=== PATIENT | female | born 1985 | race Caucasian/White ===

== ENCOUNTER 2020-01-18 13:02 | Observation (INO) | payer OTHER ==
[2020-01-18 14:41] LABS: Appearance SLIGHTLY CLOUDY (CLEAR); Bacteria RARE /HPF (NEGATIVE); Bilirubin NEGATIVE (NEGATIVE); Blood NEGATIVE Ery/ul (0-5); Epithelial Cells RARE /HPF (FEW); Glucose 150 mg/dL (NEGATIVE); Ketones NEGATIVE (NEGATIVE); Leukocyte Esterase NEGATIVE (NEGATIVE); Mucus SLIGHT /HPF (NEGATIVE); Nitrite NEGATIVE (NEGATIVE); Protein,Urine Dip NEGATIVE (Negative); Urobilinogen NEGATIVE mg/dL (0-1)
[2020-01-18 14:43] LABS: Absolute Neutrophil Ct (ANC) 6.83 (1.4-6.9); BASOPHIL % 0.1 % (0.0-0.4); Basophil (Absolute #) 0.01 (0-0.4); Eosinophil % 0.7 % (0.00-5.0); Eosinophil (Absolute #) 0.06 (0-0.5); Hematocrit 40.7 % (35-47); Hemoglobin 13.3 gm/dl (12.0-16.0); Lymphocyte (Absolute #) 1.05 (1.0-4.6); Lymphocytes % 12.3 % (24.0-44.0); Mean Corpuscular Hemoglobin 29.4 pg (26-32); Mean Corpuscular Hgb Concent. 32.7 g/dl (32-36); Mean Platelet Volume 9.9 fl (7.5-11.0); Monocyte (Absolute #) 0.59 (0.0-1.3); Monocytes % 6.9 % (0.0-12.0); Platelet Count 214 K/mm3 (150-450); Red Blood Count 4.52 M/mm3 (4.1-5.4); White Blood Count 8.5 K/mm3 (4.0-10.5)
[2020-01-18] MEDS: TYLENOL EXTRA STRENGTH 500 MG PO PRN ×2 (15:08→21:08)
[2020-01-18 15:26] LABS: ALBUMIN 4.1 g/dL (3.5-5.0); ALKALINE PHOSPHATASE 65 U/L (38-126); ANION GAP 11.7 MEQ/L (5-15); BLOOD UREA NITROGEN 8 mg/dL (7-17); CHLORIDE 102 mmol/L (98-107); Calcium 10.1 mg/dL (8.4-10.2); Carbon Dioxide 24 mmol/L (22-30); Creatinine 1 0.41 mg/dL (0.52-1.04); EST GLOMERULAR FILTRATION RATE > 60.0 ML/MIN; Glucose 108 mg/dL (74-106); Potassium 3.8 mmol/L (3.5-5.1); SGOT/AST 23 U/L (14-36); SGPT/ALT 16 U/L (0-35); SODIUM 134 mmol/L (137-145); Total Protein 7.4 g/dL (6.3-8.2)
[2020-01-18] MEDS ORDERED: PROCARDIA 10 MG ONE (20:11)
[2020-01-18] MEDS ORDERED: THERAGRAN MULTIVITAMIN ONE (20:11)
[2020-01-18] MEDS ORDERED: Pepcid 20 MG PO PRN (20:13)
[2020-01-18] MEDS ORDERED: Adalat CC 30 MG TABLET PO SCH (22:00)
[2020-01-18] MEDS ORDERED: THERAGRAN MULTIVITAMIN PO SCH (22:00)
[2020-01-18] MEDS ORDERED: NON-FORMULARY ITEM PO PRN (22:00)
[2020-01-18] MEDS ORDERED: Ambien 10 MG PO SCH (22:00)
[2020-01-18 23:41] VITALS: O2SAT 99
[2020-01-19] MEDS ORDERED: Pepcid 20 MG PO PRN (06:36)
[2020-01-19] MEDS ORDERED: PATIENT OWN MEDICATION PO PRN (06:43)
--- NOTE | 2020-01-19 10:58 | XRAY ---
Indication: Right upper quadrant pain. Cholecystectomy. Two-dimensional right upper quadrant abdominal sonogram performed. Comparison: None Pancreas not well-visualized due to overlying bowel gas. Gallbladder surgically absent. No free fluid. Common bile duct measures 3.3 mm. No intrahepatic biliary distention. Remaining visualized portions of the liver appear sonographically unremarkable. Right kidney measures 11.3 cm in length with nonobstructing punctate calculus. Impression: Nonvisualization pancreas, cholecystectomy, and nonobstructing right renal micro-calculus. Remaining right upper quadrant sonogram is negative.
--- NOTE | 2020-01-19 11:23 | XRAY ---
Indication: Right upper quadrant pain. . 2-dimensional OB ultrasound performed. Comparison: None There is a single viable intrauterine currently in cephalic presentation. Normal four-chamber heart with heart rate 139 BPM. Normal three-vessel cord and cord insertion. Visualized spine, stomach, and bladder are unremarkable. Posterior placenta without abruption/previa. Cervical length is 4.8 cm. BPD measures 7.22 cm corresponding to 29 weeks 0 days. HC measures 26.71 cm corresponding to 29 weeks 1 day. AC measures 22.96 cm corresponding to 27 weeks 2 days. FL measures 4.79 cm corresponding to 26 weeks 0 days. JOSELUIS is 16 cm. Impression: Single viable intrauterine with mean gestational age 27 weeks 6 days. Expected date of confinement is April 13, 2020.
[2020-01-19 16:30] VITALS: BP 124/89; PULSE 95
[2020-01-19] MEDS ORDERED: THERAGRAN MULTIVITAMIN PO SCH (22:00)
[2020-01-19] MEDS ORDERED: Adalat CC 30 MG TABLET PO SCH (22:00)
== END 2020-01-19 12:58 | disposition home or self-care (01) ==
LOC: ED 13:02 → OB 13:30
PROVIDERS: ADMIT Family Medicine; ATTEND Family Medicine
DX: O26.892 Other specified pregnancy related conditions, second trimester (principal); Z3A.27 27 weeks gestation of pregnancy; R10.11 Right upper quadrant pain; O13.2 Gestational [pregnancy-induced] hypertension without significant proteinuria, second trimester
CPT/HCPCS: 36415; 76705; 76805; 80053; 81001; 84550; 85025; 99283; G0378; A9270-GY

== ENCOUNTER 2020-02-04 09:22 | Observation (INO) | payer OTHER ==
[2020-02-04] MEDS ORDERED: Lactated Ringers 1,000 ML IV SCH (11:00)
[2020-02-04 11:43] LABS: Appearance SLIGHTLY CLOUDY (CLEAR); Bilirubin NEGATIVE (NEGATIVE); Blood NEGATIVE Ery/ul (0-5); Epithelial Cells RARE /HPF (FEW); Glucose NEGATIVE (NEGATIVE); Ketones NEGATIVE (NEGATIVE); Leukocyte Esterase NEGATIVE (NEGATIVE); Mucus SLIGHT /HPF (NEGATIVE); Nitrite NEGATIVE (NEGATIVE); Protein,Urine Dip NEGATIVE (Negative); RBC 0-2 /HPF (0-2); Specific Gravity 1.018 (1.005-1.025); Urobilinogen NEGATIVE mg/dL (0-1); WBC 0-2 /HPF (0-5)
[2020-02-04 11:51] LABS: Absolute Neutrophil Ct (ANC) 6.42 (1.4-6.9); BASOPHIL % 0.1 % (0.0-0.4); Basophil (Absolute #) 0.01 (0-0.4); Eosinophil % 0.4 % (0.00-5.0); Eosinophil (Absolute #) 0.03 (0-0.5); Hematocrit 38.3 % (35-47); Hemoglobin 12.4 gm/dl (12.0-16.0); Lymphocyte (Absolute #) 0.96 (1.0-4.6); Lymphocytes % 12.3 % (24.0-44.0); Mean Cell Volume 91.8 fl (78-100); Mean Corpuscular Hemoglobin 29.7 pg (26-32); Mean Corpuscular Hgb Concent. 32.4 g/dl (32-36); Mean Platelet Volume 10.4 fl (7.5-11.0); Monocytes % 5.1 % (0.0-12.0); Neutrophil % 82.1 % (36.0-66.0); Platelet Count 201 K/mm3 (150-450); Red Blood Count 4.17 M/mm3 (4.1-5.4); Red Cell Distribution Width 14.1 % (11.5-14.0); White Blood Count 7.8 K/mm3 (4.0-10.5)
[2020-02-04 12:39] LABS: ABO TYPING A; Antibody Screen NEGATIVE (NEGATIVE); RH TYPING POSITIVE
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
[2020-02-04 19:36] VITALS: BP 119/80; PULSE 87; O2SAT 97
[2020-02-04 19:39] LABS: Amphetamine,Urine NEGATIVE (NEGATIVE); Barbiturate,Urine NEGATIVE (NEGATIVE); Benzodiazepine,Urine NEGATIVE (NEGATIVE); Cocaine,Urine NEGATIVE (NEGATIVE); Methadone,Urine NEGATIVE (NEGATIVE); Opiate,Urine NEGATIVE (NEGATIVE); PCP,Urine NEGATIVE (NEGATIVE); THC,Urine NEGATIVE (NEGATIVE)
== END 2020-02-04 17:00 | disposition home or self-care (01) ==
LOC: OB 09:22
PROVIDERS: ADMIT Obstetrics & Gynecology; ATTEND Obstetrics & Gynecology
DX: Z34.83 Encounter for supervision of other normal pregnancy, third trimester (principal); Z3A.29 29 weeks gestation of pregnancy
CPT/HCPCS: 36415; 76805; 80307; 81001; 85025; 85460; 86850; 86900; 86901; G0378

== ENCOUNTER 2020-02-22 14:43 | Observation (INO) | payer OTHER ==
[2020-02-22] MEDS ORDERED: Lactated Ringers 1,000 ML IV ONE (15:28)
[2020-02-22 15:46] LABS: Appearance SLIGHTLY CLOUDY (CLEAR); Bilirubin NEGATIVE (NEGATIVE); Blood NEGATIVE Ery/ul (0-5); Epithelial Cells RARE /HPF (FEW); Glucose NEGATIVE (NEGATIVE); Ketones NEGATIVE (NEGATIVE); Leukocyte Esterase SMALL (NEGATIVE); Mucus SLIGHT /HPF (NEGATIVE); Nitrite NEGATIVE (NEGATIVE); Protein,Urine Dip NEGATIVE (Negative); Specific Gravity 1.024 (1.005-1.025); Urobilinogen NEGATIVE mg/dL (0-1)
[2020-02-22 15:55] LABS: Amphetamine,Urine NEGATIVE (NEGATIVE); Barbiturate,Urine NEGATIVE (NEGATIVE); Benzodiazepine,Urine NEGATIVE (NEGATIVE); Cocaine,Urine NEGATIVE (NEGATIVE); Methadone,Urine NEGATIVE (NEGATIVE); Opiate,Urine NEGATIVE (NEGATIVE); PCP,Urine NEGATIVE (NEGATIVE); THC,Urine NEGATIVE (NEGATIVE)
[2020-02-22 16:08] LABS: Absolute Neutrophil Ct (ANC) 7.55 (1.4-6.9); BASOPHIL % 0.1 % (0.0-0.4); Basophil (Absolute #) 0.01 (0-0.4); Eosinophil % 0.5 % (0.00-5.0); Eosinophil (Absolute #) 0.05 (0-0.5); Hematocrit 38.3 % (35-47); Hemoglobin 12.6 gm/dl (12.0-16.0); Lymphocyte (Absolute #) 0.99 (1.0-4.6); Lymphocytes % 10.8 % (24.0-44.0); Mean Corpuscular Hgb Concent. 32.9 g/dl (32-36); Mean Platelet Volume 10.5 fl (7.5-11.0); Monocyte (Absolute #) 0.56 (0.0-1.3); Monocytes % 6.1 % (0.0-12.0); Neutrophil % 82.5 % (36.0-66.0); Platelet Count 205 K/mm3 (150-450); Red Blood Count 4.35 M/mm3 (4.1-5.4); Red Cell Distribution Width 13.9 % (11.5-14.0); White Blood Count 9.2 K/mm3 (4.0-10.5)
[2020-02-22] MEDS ORDERED: BRETHINE 1 MG/ML SQ ONE ×2 (16:08→18:20)
[2020-02-22] MEDS ORDERED: BRETHINE 1 MG/ML ONE (18:20)
[2020-02-22 21:55] VITALS: O2SAT 100
[2020-02-22 22:21] VITALS: BP 133/83; PULSE 95
== END 2020-02-22 20:45 | disposition home or self-care (01) ==
LOC: OB 14:43
PROVIDERS: ADMIT Obstetrics & Gynecology; ATTEND Obstetrics & Gynecology
DX: Z34.83 Encounter for supervision of other normal pregnancy, third trimester (principal); Z3A.32 32 weeks gestation of pregnancy
CPT/HCPCS: 36415; 80307; 81001; 82731; 85025; 96372; G0378

== ENCOUNTER 2020-02-26 11:12 | Observation (INO) | payer OTHER ==
[2020-02-26 11:57] LABS: Amphetamine,Urine NEGATIVE (NEGATIVE); Barbiturate,Urine NEGATIVE (NEGATIVE); Benzodiazepine,Urine NEGATIVE (NEGATIVE); Cocaine,Urine NEGATIVE (NEGATIVE); Methadone,Urine NEGATIVE (NEGATIVE); Opiate,Urine NEGATIVE (NEGATIVE); PCP,Urine NEGATIVE (NEGATIVE); THC,Urine NEGATIVE (NEGATIVE)
[2020-02-26] MEDS ORDERED: Lactated Ringers 1,000 ML IV ONE (11:58)
[2020-02-26 12:04] LABS: Appearance SLIGHTLY CLOUDY (CLEAR); Bacteria FEW /HPF (NEGATIVE); Bilirubin NEGATIVE (NEGATIVE); Blood NEGATIVE Ery/ul (0-5); Epithelial Cells FEW /HPF (FEW); Glucose NEGATIVE (NEGATIVE); Ketones SMALL (NEGATIVE); Leukocyte Esterase MODERATE (NEGATIVE); Mucus SLIGHT /HPF (NEGATIVE); Nitrite NEGATIVE (NEGATIVE); Protein,Urine Dip NEGATIVE (Negative); Specific Gravity 1.015 (1.005-1.025); Urobilinogen NEGATIVE mg/dL (0-1)
[2020-02-26] MEDS ORDERED: BRETHINE 1 MG/ML SQ ONE (13:12)
[2020-02-26] MEDS ORDERED: ROCEPHIN 1 Gm-D5w 50 ml Bag** 1 G/50 ML IVPB IV SCH (13:15)
[2020-02-26] MEDS ORDERED: BENADRYL 25 MG CAPSULE PO ONE (14:06)
[2020-02-26 15:56] VITALS: BP 128/83; PULSE 102
== END 2020-02-26 15:59 | disposition home or self-care (01) ==
LOC: OB 11:12
PROVIDERS: ADMIT Obstetrics & Gynecology; ATTEND Obstetrics & Gynecology
DX: O47.00 False labor before 37 completed weeks of gestation, unspecified trimester (principal); Z3A.32 32 weeks gestation of pregnancy
CPT/HCPCS: 80307; 81001; 87086; G0378; J0696; A9270-GY

== ENCOUNTER 2020-03-02 08:59 | Observation (INO) | payer OTHER ==
[2020-03-02 10:40] LABS: Absolute Neutrophil Ct (ANC) 5.16 (1.4-6.9); BASOPHIL % 0.1 % (0.0-0.4); Basophil (Absolute #) 0.01 (0-0.4); Eosinophil % 1.2 % (0.00-5.0); Eosinophil (Absolute #) 0.08 (0-0.5); Lymphocyte (Absolute #) 0.95 (1.0-4.6); Mean Cell Volume 89.4 fl (78-100); Mean Corpuscular Hgb Concent. 32.4 g/dl (32-36); Mean Platelet Volume 10.5 fl (7.5-11.0); Monocyte (Absolute #) 0.61 (0.0-1.3); Neutrophil % 75.7 % (36.0-66.0); Platelet Count 202 K/mm3 (150-450); Red Blood Count 4.14 M/mm3 (4.1-5.4); Red Cell Distribution Width 14.2 % (11.5-14.0); White Blood Count 6.8 K/mm3 (4.0-10.5)
[2020-03-02 11:12] LABS: ALBUMIN 3.4 g/dL (3.5-5.0); ALKALINE PHOSPHATASE 71 U/L (38-126); ANION GAP 8.7 MEQ/L (5-15); BLOOD UREA NITROGEN 7 mg/dL (7-17); CHLORIDE 104 mmol/L (98-107); Carbon Dioxide 25 mmol/L (22-30); Creatinine 1 0.45 mg/dL (0.52-1.04); EST GLOMERULAR FILTRATION RATE > 60.0 ML/MIN; Glucose 89 mg/dL (74-106); Potassium 3.5 mmol/L (3.5-5.1); SGOT/AST 19 U/L (14-36); SGPT/ALT 14 U/L (0-35); SODIUM 135 mmol/L (137-145); Total Protein 6.4 g/dL (6.3-8.2)
[2020-03-02 11:29] VITALS: BP 122/82; PULSE 104
[2020-03-02 20:05] LABS: Creatinine, Urine Random 75.4 mg/dl (30-125)
== END 2020-03-02 10:50 | disposition home or self-care (01) ==
LOC: WHC 08:59 → OB 09:34
PROVIDERS: ADMIT Obstetrics & Gynecology; ATTEND Obstetrics & Gynecology
DX: O13.3 Gestational [pregnancy-induced] hypertension without significant proteinuria, third trimester (principal); Z3A.33 33 weeks gestation of pregnancy; R80.9 Proteinuria, unspecified
CPT/HCPCS: 36415; 59025; 80053; 82570; 84156; 84550; 85025; 87081; G0378; 59425; 81002

== ENCOUNTER 2020-03-09 10:18 | Observation (INO) | payer OTHER ==
[2020-03-09 11:55] LABS: Hematocrit 36.8 % (35-47); Mean Cell Volume 88.5 fl (78-100); Mean Corpuscular Hemoglobin 28.8 pg (26-32); Mean Corpuscular Hgb Concent. 32.6 g/dl (32-36); Mean Platelet Volume 10.2 fl (7.5-11.0); Platelet Count 201 K/mm3 (150-450); Red Blood Count 4.16 M/mm3 (4.1-5.4); Red Cell Distribution Width 14.2 % (11.5-14.0); White Blood Count 7.5 K/mm3 (4.0-10.5)
[2020-03-09 12:10] LABS: Creatinine, Urine Random 109.8 mg/dl (30-125)
[2020-03-09 12:12] LABS: ALBUMIN 3.6 g/dL (3.5-5.0); ALKALINE PHOSPHATASE 82 U/L (38-126); ANION GAP 10.5 MEQ/L (5-15); BLOOD UREA NITROGEN 11 mg/dL (7-17); CHLORIDE 106 mmol/L (98-107); Calcium 9.1 mg/dL (8.4-10.2); Carbon Dioxide 22 mmol/L (22-30); Creatinine 1 0.41 mg/dL (0.52-1.04); EST GLOMERULAR FILTRATION RATE > 60.0 ML/MIN; Glucose 102 mg/dL (74-106); Potassium 3.8 mmol/L (3.5-5.1); SGOT/AST 20 U/L (14-36); SGPT/ALT 11 U/L (0-35); SODIUM 134 mmol/L (137-145); Total Protein 6.7 g/dL (6.3-8.2); Uric Acid 3.3 mg/dL (2.6-6.0)
[2020-03-09 14:25] VITALS: BP 118/73; PULSE 103
[2020-03-09 14:28] VITALS: O2SAT 99
== END 2020-03-09 14:05 | disposition home or self-care (01) ==
LOC: WHC 10:18 → OB 10:41
PROVIDERS: ADMIT Obstetrics & Gynecology; ATTEND Obstetrics & Gynecology
DX: O13.3 Gestational [pregnancy-induced] hypertension without significant proteinuria, third trimester (principal); Z3A.34 34 weeks gestation of pregnancy
CPT/HCPCS: 36415; 59025; 80053; 82570; 84156; 84550; 85027; G0378; 59425; 81002

== ENCOUNTER 2020-03-14 10:34 | Observation (INO) | payer OTHER ==
[2020-03-14 11:07] VITALS: BP 127/81; PULSE 103; O2SAT 100
== END 2020-03-14 11:30 | disposition home or self-care (01) ==
LOC: OB 10:34
PROVIDERS: ADMIT Obstetrics & Gynecology; ATTEND Obstetrics & Gynecology
DX: O13.3 Gestational [pregnancy-induced] hypertension without significant proteinuria, third trimester (principal)
CPT/HCPCS: 59025; G0378

== ENCOUNTER 2020-03-17 13:35 | Observation (INO) | payer OTHER ==
[2020-03-17 14:51] VITALS: BP 132/87; PULSE 98; O2SAT 103
== END 2020-03-17 14:45 | disposition home or self-care (01) ==
LOC: OB 13:35
PROVIDERS: ADMIT Obstetrics & Gynecology; ATTEND Obstetrics & Gynecology
DX: O13.3 Gestational [pregnancy-induced] hypertension without significant proteinuria, third trimester (principal)
CPT/HCPCS: 59025; G0378

== ENCOUNTER 2020-03-21 13:16 | Observation (INO) | payer OTHER ==
[2020-03-21 14:15] VITALS: BP 141/84; PULSE 104
== END 2020-03-21 14:35 | disposition home or self-care (01) ==
LOC: UNDOADMOB 13:16 → MED SURG 13:16 → UNDODISOB 14:35
PROVIDERS: ADMIT Obstetrics & Gynecology; ATTEND Obstetrics & Gynecology
DX: O13.3 Gestational [pregnancy-induced] hypertension without significant proteinuria, third trimester (principal); Z3A.36 36 weeks gestation of pregnancy
CPT/HCPCS: 59025; G0378

== ENCOUNTER 2020-03-24 12:46 | Observation (INO) | payer OTHER ==
--- NOTE | 2020-03-24 13:40 | XRAY ---
Indication: growth. 2-dimensional OB ultrasound performed. Comparison: February 04, 2020. Again there is a single viable intrauterine in cephalic presentation. Normal four-chamber heart with heart rate 147 BPM. Again posterior fundal placenta without abruption/previa. BPD measures 8.87 cm corresponding to 35 weeks 6 days. HC measures 32.11 cm corresponding to 36 weeks 2 days. AC measures 32.30 cm corresponding to 36 weeks 2 days. FL measures 6.91 cm corresponding to 35 weeks 3 days. Estimated weight 6 lbs. 3 oz., +/-15 ounces. Approximate 38 percentile. JOSELUIS is 12.5 cm. Impression: Single viable intrauterine with mean gestational age 36 weeks 0 days. Normal progression of . No new/acute findings.
[2020-03-24 13:48] VITALS: PULSE 93
[2020-03-24 13:48] LABS: 24 HR TOT. PROTEIN CALCULATION 0.063 GM/DAY (0.04-0.15)
[2020-03-24 14:53] VITALS: BP 127/82
== END 2020-03-24 14:10 | disposition home or self-care (01) ==
LOC: UNDOADMOB 12:46 → MED SURG 12:46 → EDSTATUS 12:46
PROVIDERS: ADMIT Obstetrics & Gynecology; ATTEND Obstetrics & Gynecology
DX: O14.93 Unspecified pre-eclampsia, third trimester (principal); Z3A.36 36 weeks gestation of pregnancy
CPT/HCPCS: 59025; 76816; 81050; 84156; G0378

== ENCOUNTER 2020-03-25 13:27 | Observation (INO) | payer OTHER ==
[2020-03-25 14:32] LABS: Absolute Neutrophil Ct (ANC) 6.03 (1.4-6.9); BASOPHIL % 0.1 % (0.0-0.4); Basophil (Absolute #) 0.01 (0-0.4); Eosinophil % 0.4 % (0.00-5.0); Eosinophil (Absolute #) 0.03 (0-0.5); Hematocrit 36.4 % (35-47); Hemoglobin 12.2 gm/dl (12.0-16.0); Lymphocyte (Absolute #) 0.99 (1.0-4.6); Lymphocytes % 13.3 % (24.0-44.0); Mean Cell Volume 87.5 fl (78-100); Mean Corpuscular Hemoglobin 29.3 pg (26-32); Mean Corpuscular Hgb Concent. 33.5 g/dl (32-36); Mean Platelet Volume 10.4 fl (7.5-11.0); Monocyte (Absolute #) 0.37 (0.0-1.3); Neutrophil % 81.2 % (36.0-66.0); Platelet Count 180 K/mm3 (150-450); Red Blood Count 4.16 M/mm3 (4.1-5.4); Red Cell Distribution Width 14.5 % (11.5-14.0); White Blood Count 7.4 K/mm3 (4.0-10.5)
[2020-03-25 14:50] LABS: ALBUMIN 3.2 g/dL (3.5-5.0); ALKALINE PHOSPHATASE 89 U/L (38-126); BLOOD UREA NITROGEN 8 mg/dL (7-17); CHLORIDE 107 mmol/L (98-107); Carbon Dioxide 22 mmol/L (22-30); Creatinine 1 0.44 mg/dL (0.52-1.04); EST GLOMERULAR FILTRATION RATE > 60.0 ML/MIN; Glucose 124 mg/dL (74-106); Potassium 3.5 mmol/L (3.5-5.1); SGOT/AST 17 U/L (14-36); SGPT/ALT 11 U/L (0-35); SODIUM 134 mmol/L (137-145); Total Protein 6.3 g/dL (6.3-8.2)
[2020-03-25 14:52] VITALS: BP 141/86; PULSE 97
[2020-03-25] MEDS ORDERED: Reglan 10 MG PO ONE (15:45)
[2020-03-25] MEDS ORDERED: Adalat CC 30 MG TABLET PO ONE (15:45)
[2020-03-25] MEDS ORDERED: TYLENOL EXTRA STRENGTH 500 MG PO ONE (15:45)
[2020-03-25 15:46] LABS: Appearance CLOUDY (CLEAR); Bacteria MODERATE /HPF (NEGATIVE); Bilirubin NEGATIVE (NEGATIVE); Blood NEGATIVE Ery/ul (0-5); Epithelial Cells FEW /HPF (FEW); Glucose 50 mg/dL (NEGATIVE); Ketones NEGATIVE (NEGATIVE); Leukocyte Esterase MODERATE (NEGATIVE); Mucus MODERATE /HPF (NEGATIVE); Nitrite NEGATIVE (NEGATIVE); Protein,Urine Dip NEGATIVE (Negative); RBC 0-2 /HPF (0-2); Specific Gravity 1.025 (1.005-1.025); Urobilinogen NEGATIVE mg/dL (0-1)
== END 2020-03-25 17:12 | disposition home or self-care (01) ==
LOC: OB 13:27
PROVIDERS: ADMIT Obstetrics & Gynecology; ATTEND Obstetrics & Gynecology
DX: Z34.83 Encounter for supervision of other normal pregnancy, third trimester (principal); Z3A.36 36 weeks gestation of pregnancy
CPT/HCPCS: 36415; 80053; 81001; 84550; 85025; 87086; G0378; A9270-GY

== ENCOUNTER 2020-03-28 05:10 | Inpatient (IN) | payer OTHER ==
[2020-03-28] MEDS ORDERED: SOD CITRATE-CITRIC ACID SOLN PO ONE ×2 (06:00→07:00)
[2020-03-28 06:02] LABS: Hematocrit 34.1 % (35-47); Hemoglobin 11.3 gm/dl (12.0-16.0); Mean Cell Volume 87.4 fl (78-100); Mean Corpuscular Hgb Concent. 33.1 g/dl (32-36); Mean Platelet Volume 10.3 fl (7.5-11.0); Platelet Count 191 K/mm3 (150-450); Red Cell Distribution Width 14.6 % (11.5-14.0); White Blood Count 6.6 K/mm3 (4.0-10.5)
[2020-03-28 06:10] LABS: Appearance CLOUDY (CLEAR); Bacteria RARE /HPF (NEGATIVE); Bilirubin NEGATIVE (NEGATIVE); Blood NEGATIVE Ery/ul (0-5); Epithelial Cells MANY /HPF (FEW); Glucose >=500 mg/dL (NEGATIVE); Ketones TRACE (NEGATIVE); Leukocyte Esterase SMALL (NEGATIVE); Mucus MODERATE /HPF (NEGATIVE); Nitrite NEGATIVE (NEGATIVE); Protein,Urine Dip 30 (Negative); Specific Gravity 1.028 (1.005-1.025); Urobilinogen NEGATIVE mg/dL (0-1)
[2020-03-28 06:19] LABS: Amphetamine,Urine NEGATIVE (NEGATIVE); Barbiturate,Urine NEGATIVE (NEGATIVE); Benzodiazepine,Urine NEGATIVE (NEGATIVE); Cocaine,Urine NEGATIVE (NEGATIVE); Methadone,Urine NEGATIVE (NEGATIVE); Opiate,Urine NEGATIVE (NEGATIVE); PCP,Urine NEGATIVE (NEGATIVE); THC,Urine NEGATIVE (NEGATIVE)
[2020-03-28 06:25] LABS: INR 0.95 (0.8-3.0); PROTIME 10.7 SECONDS (9.95-12.35)
[2020-03-28 06:28] LABS: PTT 23.1 SECONDS (25.3-37.0)
[2020-03-28 06:52] LABS: ABO TYPING A; Antibody Screen NEGATIVE (NEGATIVE); RH TYPING POSITIVE
[2020-03-28] MEDS ORDERED: Lactated Ringers 1,000 ML IV ONE ×2 (07:00→07:19)
[2020-03-28] MEDS ORDERED: CLINDAMYCIN-D5W 900 MG/50 ML*** 900 MG/50 ML BAG IV SCH ×2 (07:00→22:00)
[2020-03-28] MEDS ORDERED: Reglan 10 MG/2 ML IV SCH (07:00)
[2020-03-28] MEDS ORDERED: Lactated Ringers 1,000 ML IV SCH (07:00)
[2020-03-28] MEDS ORDERED: Pepcid 20 MG VIAL IV SCH (07:00)
[2020-03-28] MEDS ORDERED: Astramorph-Pf 5 MG/10 ML ONE (07:33)
[2020-03-28] MEDS ORDERED: Decadron 4 MG INJ ONE (08:26)
[2020-03-28] MEDS ORDERED: TORAdol 30 mg Injection ONE (08:26)
[2020-03-28] MEDS ORDERED: Pitocin 10 UNITS/ML ONE (08:26)
[2020-03-28] MEDS ORDERED: Zofran 4 MG/2 ML VIAL ONE (08:26)
[2020-03-28] MEDS ORDERED: Naropin 0.5% 30 ML VIAL ONE (08:36)
[2020-03-28] MEDS ORDERED: EPINEPHRINE 1MG/ML AMP ONE (08:36)
[2020-03-28] MEDS ORDERED: HOLD NARCOTIC ANALGESICS AND SEDATIVES X24 HR MC PRN (09:00)
[2020-03-28] MEDS ORDERED: DEMEROL 50 MG IV PRN (09:00)
[2020-03-28] MEDS ORDERED: Phenergan 25 MG INJ IM PRN (09:00)
[2020-03-28] MEDS ORDERED: LANSINOH 40 GM TOP PRN (09:00)
[2020-03-28] MEDS ORDERED: Mylicon 80MG PO PRN (09:00)
[2020-03-28] MEDS ORDERED: PERCOCET TABLET 5/325MG PO PRN (09:00)
[2020-03-28] MEDS ORDERED: Narcan 0.4 MG/ML IV PRN (09:00)
[2020-03-28] MEDS ORDERED: Zofran 4 MG/2 ML VIAL IV PRN (09:00)
[2020-03-28] MEDS ORDERED: Dulcolax 10 MG SUPP PR PRN (09:00)
[2020-03-28] MEDS ORDERED: Sodium Chloride 0.9% 10 ML FLUSH Syringe IJ PRN (09:00)
[2020-03-28] MEDS ORDERED: CLARITIN 10 MG PO PRN (09:00)
[2020-03-28] MEDS ORDERED: BENADRYL 50 MG/ML IV PRN (09:00)
[2020-03-28] MEDS ORDERED: Nubain 10 MG/ML IV PRN (09:00)
[2020-03-28] MEDS ORDERED: MORPHINE SULFATE 2 MG INJ IV PRN (09:00)
[2020-03-28] MEDS ORDERED: XYLOCAINE 2%/Epi 1:200000 20ML VIAL MPF ONE (09:09)
[2020-03-28 10:00] LABS: Appearance CLEAR (CLEAR); Bilirubin NEGATIVE (NEGATIVE); Blood NEGATIVE Ery/ul (0-5); Glucose 50 mg/dL (NEGATIVE); Ketones NEGATIVE (NEGATIVE); Leukocyte Esterase NEGATIVE (NEGATIVE); Mucus SLIGHT /HPF (NEGATIVE); Nitrite NEGATIVE (NEGATIVE); Protein,Urine Dip NEGATIVE (Negative); Specific Gravity 1.008 (1.005-1.025); Urobilinogen NEGATIVE mg/dL (0-1)
[2020-03-28 10:04] LABS: Bacteria RARE /HPF (NEGATIVE); Epithelial Cells RARE /HPF (FEW); RBC 0-2 /HPF (0-2); WBC 0-2 /HPF (0-5)
[2020-03-28] MEDS: FERREX 150 PO SCH (12:31)
[2020-03-28] MEDS: Colace 100 MG PO SCH ×2 (12:31→20:35)
[2020-03-28] MEDS: Dextrose 5%-Lr IV Solution 1000 ML 1,000 ML IV SCH ×2 (14:09→20:27)
[2020-03-28] MEDS: CLINDAMYCIN-D5W 900 MG/50 ML*** 900 MG/50 ML BAG IV SCH (16:44)
[2020-03-28] MEDS: MOTRIN 400 MG PO PRN (20:35)
[2020-03-28] MEDS: TYLENOL EXTRA STRENGTH 500 MG PO PRN (20:36)
[2020-03-28] MEDS ORDERED: Ambien 10 MG PO PRN (20:52)
[2020-03-28] MEDS ORDERED: ENOXAPARIN SODIUM SQ ONE (21:00)
[2020-03-28] MEDS ORDERED: Adalat CC 30 MG TABLET PO SCH (22:00)
[2020-03-28] MEDS ORDERED: Pepcid 20 MG PO SCH (22:00)
[2020-03-29] MEDS: CLINDAMYCIN-D5W 900 MG/50 ML*** 900 MG/50 ML BAG IV SCH (01:45)
[2020-03-29] MEDS: MOTRIN 400 MG PO PRN ×2 (05:22→12:40)
[2020-03-29] MEDS: TYLENOL EXTRA STRENGTH 500 MG PO PRN ×2 (05:22→10:55)
[2020-03-29 05:24] LABS: Absolute Neutrophil Ct (ANC) 7.88 (1.4-6.9); BASOPHIL % 0.1 % (0.0-0.4); Basophil (Absolute #) 0.01 (0-0.4); Eosinophil % 0.1 % (0.00-5.0); Eosinophil (Absolute #) 0.01 (0-0.5); Hematocrit 26.6 % (35-47); Hemoglobin 8.8 gm/dl (12.0-16.0); Lymphocyte (Absolute #) 0.89 (1.0-4.6); Lymphocytes % 9.3 % (24.0-44.0); Mean Cell Volume 89.3 fl (78-100); Mean Corpuscular Hemoglobin 29.5 pg (26-32); Mean Corpuscular Hgb Concent. 33.1 g/dl (32-36); Mean Platelet Volume 10.7 fl (7.5-11.0); Monocyte (Absolute #) 0.79 (0.0-1.3); Monocytes % 8.2 % (0.0-12.0); Neutrophil % 82.3 % (36.0-66.0); Platelet Count 165 K/mm3 (150-450); Red Blood Count 2.98 M/mm3 (4.1-5.4); Red Cell Distribution Width 14.4 % (11.5-14.0); White Blood Count 9.6 K/mm3 (4.0-10.5)
--- NOTE | 2020-03-29 05:51 | PCM.NOTE ---
Date and Time: 03/29/20 0549 Subjective Assessment: pod 1 sp csection pt resting in bed able to ambulate and tolerate diet. vss afebrile abd; soft incisionc/d/intact nondistended uterus; firm lochia; mild a/p sp csection with chronic htn with anemia should take iron supplementation bid continue nifedipine once daily anticipate discharge tomorrow am OBJECTIVE DATA Vital Signs: Vital Signs - 24 hr Temp Pulse Resp BP Pulse Ox 03/29/20 04:00 99 03/29/20 03:00 79 134/74 99 03/29/20 02:00 97.7 F 79 136/78 99 03/29/20 01:00 99 03/29/20 00:00 99 03/28/20 23:00 100 03/28/20 22:00 100 03/28/20 21:00 100 03/28/20 20:00 97.7 F 79 20 145/80 100 03/28/20 19:15 97.7 F 79 20 145/80 100 03/28/20 19:00 99 03/28/20 18:00 100 03/28/20 17:00 100 03/28/20 16:00 100 03/28/20 15:00 100 03/28/20 14:00 85 18 120/80 100 03/28/20 11:00 97 H 20 114/79 100 03/28/20 10:45 97 H 20 117/68 03/28/20 10:30 93 H 20 120/73 03/28/20 10:15 94 H 124/75 03/28/20 10:00 98.0 F 89 20 111/60 03/28/20 07:33 98.0 F 95 H 20 111/60 100 03/28/20 07:31 98.0 F 95 H 20 111/60 100 03/28/20 07:28 98.0 F 95 H 20 111/60 100 03/28/20 06:45 98.0 F 95 H 20 111/60 100 03/28/20 06:24 98.0 F 95 H 20 111/60 100 Pain Assessment - Last Documented Pain Intensity 1 Intake and Output: Intake & Output 03/26/20 03/27/20 03/28/20 03/29/20 11:59 11:59 11:59 11:59 Intake Total 1250 Output Total 1000 Balance 250 Weight 84.942 kg Lab Results: Lab Results-Last 24 Hours 03/28/20 03/28/20 03/28/20 Range/Units 05:50 05:50 05:50 WBC 6.6 (4.0-10.5) K/mm3 RBC 3.90 L (4.1-5.4) M/mm3 Hgb 11.3 L (12.0-16.0) gm/dl Hct 34.1 L (35-47) % MCV 87.4 (78-100) fl MCH 29.0 (26-32) pg MCHC 33.1 (32-36) g/dl RDW 14.6 H (11.5-14.0) % Plt Count 191 (150-450) K/mm3 MPV 10.3 (7.5-11.0) fl Gran % (36.0-66.0) % Eos # (Auto) (0-0.5) Absolute Lymphs (auto) (1.0-4.6) Absolute Monos (auto) (0.0-1.3) Lymphocytes % (24.0-44.0) % Monocytes % (0.0-12.0) % Eosinophils % (0.00-5.0) % Basophils % (0.0-0.4) % Absolute Granulocytes (1.4-6.9) Basophils # (0-0.4) PT (9.95-12.35) SECONDS INR (0.8-3.0) APTT (25.3-37.0) SECONDS Urine Color YELLOW (YELLOW) Urine Appearance CLOUDY (CLEAR) Urine pH 5.0 (5-6) Ur Specific [place] 1.028 (1.005-1.025) Urine Protein 30 (Negative) Urine Ketones TRACE (NEGATIVE) Urine Blood NEGATIVE (0-5) Brown/ul Urine Nitrite NEGATIVE (NEGATIVE) Urine Bilirubin NEGATIVE (NEGATIVE) Urine Urobilinogen NEGATIVE (0-1) mg/dL Ur Leukocyte Esterase SMALL (NEGATIVE) Urine WBC (Auto) 6-10 (0-5) /HPF Urine RBC (Auto) 6-10 (0-2) /HPF U Epithel Cells (Auto) MANY (FEW) /HPF Urine Bacteria (Auto) RARE (NEGATIVE) /HPF Urine Mucus (Auto) MODERATE (NEGATIVE) /HPF Urine Culture Reflexed YES (NO) Urine Glucose >=500 (NEGATIVE) mg/dL Urine Opiates Level NEGATIVE (NEGATIVE) Ur Methadone NEGATIVE (NEGATIVE) Urine Barbiturates NEGATIVE (NEGATIVE) Ur Phencyclidine (PCP) NEGATIVE (NEGATIVE) Urine Amphetamine NEGATIVE (NEGATIVE) U Benzodiazepine Level NEGATIVE (NEGATIVE) Urine Cocaine NEGATIVE (NEGATIVE) Urine Marijuana (THC) NEGATIVE (NEGATIVE) ABO Group Rh Factor Antibody Screen (NEGATIVE) 03/28/20 03/28/20 03/28/20 Range/Units 05:50 05:50 08:13 WBC (4.0-10.5) K/mm3 RBC (4.1-5.4) M/mm3 Hgb (12.0-16.0) gm/dl Hct (35-47) % MCV (78-100) fl MCH (26-32) pg MCHC (32-36) g/dl RDW (11.5-14.0) % Plt Count (150-450) K/mm3 MPV (7.5-11.0) fl Gran % (36.0-66.0) % Eos # (Auto) (0-0.5) Absolute Lymphs (auto) (1.0-4.6) Absolute Monos (auto) (0.0-1.3) Lymphocytes % (24.0-44.0) % Monocytes % (0.0-12.0) % Eosinophils % (0.00-5.0) % Basophils % (0.0-0.4) % Absolute Granulocytes (1.4-6.9) Basophils # (0-0.4) PT 10.7 (9.95-12.35) SECONDS INR 0.95 (0.8-3.0) APTT 23.1 L (25.3-37.0) SECONDS Urine Color COLORLESS (YELLOW) Urine Appearance CLEAR (CLEAR) Urine pH 8.0 (5-6) Ur Specific [place] 1.008 (1.005-1.025) Urine Protein NEGATIVE (Negative) Urine Ketones NEGATIVE (NEGATIVE) Urine Blood NEGATIVE (0-5) Brown/ul Urine Nitrite NEGATIVE (NEGATIVE) Urine Bilirubin NEGATIVE (NEGATIVE) Urine Urobilinogen NEGATIVE (0-1) mg/dL Ur Leukocyte Esterase NEGATIVE (NEGATIVE) Urine WBC (Auto) 0-2 (0-5) /HPF Urine RBC (Auto) 0-2 (0-2) /HPF U Epithel Cells (Auto) RARE (FEW) /HPF Urine Bacteria (Auto) RARE (NEGATIVE) /HPF Urine Mucus (Auto) SLIGHT (NEGATIVE) /HPF Urine Culture Reflexed (NO) Urine Glucose 50 (NEGATIVE) mg/dL Urine Opiates Level (NEGATIVE) Ur Methadone (NEGATIVE) Urine Barbiturates (NEGATIVE) Ur Phencyclidine (PCP) (NEGATIVE) Urine Amphetamine (NEGATIVE) U Benzodiazepine Level (NEGATIVE) Urine Cocaine (NEGATIVE) Urine Marijuana (THC) (NEGATIVE) ABO Group A Rh Factor POSITIVE Antibody Screen NEGATIVE (NEGATIVE) 03/29/20 Range/Units 04:25 WBC 9.6 (4.0-10.5) K/mm3 RBC 2.98 L (4.1-5.4) M/mm3 Hgb 8.8 L D (12.0-16.0) gm/dl Hct 26.6 L (35-47) % MCV 89.3 (78-100) fl MCH 29.5 (26-32) pg MCHC 33.1 (32-36) g/dl RDW 14.4 H (11.5-14.0) % Plt Count 165 (150-450) K/mm3 MPV 10.7 (7.5-11.0) fl Gran % 82.3 H (36.0-66.0) % Eos # (Auto) 0.01 (0-0.5) Absolute Lymphs (auto) 0.89 L (1.0-4.6) Absolute Monos (auto) 0.79 (0.0-1.3) Lymphocytes % 9.3 L (24.0-44.0) % Monocytes % 8.2 (0.0-12.0) % Eosinophils % 0.1 (0.00-5.0) % Basophils % 0.1 (0.0-0.4) % Absolute Granulocytes 7.88 H (1.4-6.9) Basophils # 0.01 (0-0.4) PT (9.95-12.35) SECONDS INR (0.8-3.0) APTT (25.3-37.0) SECONDS Urine Color (YELLOW) Urine Appearance (CLEAR) Urine pH (5-6) Ur Specific [place] (1.005-1.025) Urine Protein (Negative) Urine Ketones (NEGATIVE) Urine Blood (0-5) Brown/ul Urine Nitrite (NEGATIVE) Urine Bilirubin (NEGATIVE) Urine Urobilinogen (0-1) mg/dL Ur Leukocyte Esterase (NEGATIVE) Urine WBC (Auto) (0-5) /HPF Urine RBC (Auto) (0-2) /HPF U Epithel Cells (Auto) (FEW) /HPF Urine Bacteria (Auto) (NEGATIVE) /HPF Urine Mucus (Auto) (NEGATIVE) /HPF Urine Culture Reflexed (NO) Urine Glucose (NEGATIVE) mg/dL Urine Opiates Level (NEGATIVE) Ur Methadone (NEGATIVE) Urine Barbiturates (NEGATIVE) Ur Phencyclidine (PCP) (NEGATIVE) Urine Amphetamine (NEGATIVE) U Benzodiazepine Level (NEGATIVE) Urine Cocaine (NEGATIVE) Urine Marijuana (THC) (NEGATIVE) ABO Group Rh Factor Antibody Screen (NEGATIVE) Multi-Disciplinary Progress Notes: Multi-Disciplinary Progress Notes 03/28/20 13:08 Respiratory Note by Franny Hughes 03/28/20 0815 went to c section for stand by for delivery. baby came out crying and good tone but color was little purple. baby was dried and shown to mother and then taken to nursery. See baby chart for further documentation. [email or web address]. Initialized on 03/28/20 13:08 - END OF NOTE
[2020-03-29 08:51] VITALS: PULSE 88; O2SAT 98
[2020-03-29] MEDS ORDERED: NORCO 5/325 MG PO PRN (09:00)
[2020-03-29] MEDS ORDERED: DEMEROL 50 MG IV PRN (09:00)
[2020-03-29] MEDS: Colace 100 MG PO SCH (10:57)
[2020-03-29] MEDS: FERREX 150 PO SCH (10:57)
[2020-03-29] MEDS ORDERED: Adacel Vial IM ONE (12:00)
[2020-03-29 17:22] VITALS: BP 124/88
--- NOTE | 2020-03-30 10:23 | OP ---
SURGERY DATE/TIME: 03/28/2020 0758 PREOPERATIVE DIAGNOSIS: Intrauterine at 37 weeks and 1 day gestation with chronic hypertension with previous section, multiparity and desiring tubal sterilization and repeat section. POSTOPERATIVE DIAGNOSIS: Intrauterine at 37 weeks and 1 day gestation with chronic hypertension with previous section, multiparity and desiring tubal sterilization and repeat section. PROCEDURES: 1) Repeat section, low flap transverse uterine incision, Pfannenstiel skin incision. 2) Bilateral tubal sterilization via Kiersten technique. SURGEON: Angel Inman D.O. BEHAVIORAL HEALTH PROFESSIONAL: María Jha and Florecita Iyer. ANESTHESIA: Spinal. ESTIMATED BLOOD LOSS: 600 cc. COMPLICATIONS: None. INDICATIONS: The risks, benefits, indications and alternatives of the procedure were reviewed with the patient prior to procedure. The patient understood the risk of infection, bleeding, bowel injury, bladder injury, ureteral injury, pelvic infection, thromboembolic disorder, possible irregular vaginal bleeding, possible irregular vaginal bleeding after tubal sterilization, possible or ectopic that may be associated with this procedure. However she desires to have this procedure as a possible means to alleviate her current medical condition. DESCRIPTION OF PROCEDURE AND FINDINGS: At this point the patient is taken to the operating room where her spinal anesthesia was found to adequate. She was then prepared and draped in normal sterile fashion in the dorsal supine position with leftward tilt. A Pfannenstiel skin incision is made with a scalpel and carried through the underlying layer of the fascia with Bovie. The fascia was then incised in the midline and the incision extended laterally with Bhat scissors. The superior aspect of the fascial incision was then grasped with Taylor clamps elevated and the underlying rectus muscles dissected off bluntly. Attention is then turned to the inferior aspect of this incision which in similar fashion was grasped, tented up with Taylor clamps and the rectus muscles dissected off bluntly. The rectus muscles were then at the midline and the peritoneum identified, tented up and entered sharply with Metzenbaum scissors. The peritoneal incision was then extended superiorly and inferiorly with good visualization of the bladder. The bladder blade was then inserted and the vesicouterine peritoneum identified, grasped with a pickup and entered sharply with Metzenbaum scissors. This incision was then extended laterally and a bladder flap created medially. The bladder blade was then re-inserted and the lower uterine segment incised in transverse fashion with a scalpel. The uterine incision was then extended laterally with bandage scissors. The bladder blade was then removed and infants head delivered atraumatically. The nose and mouth were suctioned with a suction cup and cord clamped and cut. The was then handed off to the awaiting nurses. The placenta was then removed manually and uterus exteriorized, cleared of all clots and debris. The uterine incision was repaired with 1-0 chromic in a running locked fashion. A second layer of the same suture was used to obtain excellent hemostasis. From this point a Ifeanyi clamp was then used to grasp the tube approximately 4 cm from the cornual region where a 3 cm segment of the tube was then ligated with free tie of chromic suture. Again, hemostasis was noted. The same procedure was performed on the right tube where a [place] clamp was used to grasp the tube approximately 4 cm from the cornual region where a 3 cm segment of the tube was then ligated with free tie of chromic suture and hemostasis obtained. From this point excellent hemostasis was noted. From this point the gutters were cleared of all clots and the uterus returned to the abdomen. From this point the peritoneal muscles closed with interrupted fashion using 2-0 chromic suture. The fascia was reapproximated with 0 Vicryl in a running fashion. The subcutaneous layer was closed with 3-0 plain suture and the skin was closed with INSORB rebecca (absorbable rebecca) with subsequent Dermabond. The patient tolerated the procedure well. Sponge, lap, needle and instrument counts correct x3. The patient was then taken to the recovery room in stable condition. The patient delivered a live baby boy at 0824 hours. 's 8 at 1 minute and 8 at 5 minutes.
== END 2020-03-29 15:45 | disposition home or self-care (01) | DRG 785 ==
LOC: MED SURG 05:10
PROVIDERS: ADMIT Obstetrics & Gynecology; ATTEND Obstetrics & Gynecology
PROC: 10D00Z1 Extraction of Products of Conception, Low, Open Approach (ICD-10-PCS; principal; 2020-03-28)
PROC: 0UL70ZZ Occlusion of Bilateral Fallopian Tubes, Open Approach (ICD-10-PCS; 2020-03-28)
DX: O34.211 Maternal care for low transverse scar from previous cesarean delivery (principal); O16.4 Unspecified maternal hypertension, complicating childbirth; Z3A.37 37 weeks gestation of pregnancy; Z37.0 Single live birth; Z30.2 Encounter for sterilization
CPT/HCPCS: 36415; 64488; 76937; 80307; 81001; 85025; 85027; 85610; 85730; 86850; 86900; 86901; 87086; 90472; 90715; J0171; J1100; J1650; J1885; J2274; J2405; J2590; J2795; L0625; A9270-GY